=== PATIENT | female | born 1950 ===

== ENCOUNTER 2019-08-29 06:45 | Inpatient (IN) | payer MEDICARE, OTHER ==
[2019-08-29] VITALS (16 sets, daily range): BP systolic 105–151; BP diastolic 53–79
[~2019-08-29] VITALS: Ht 149.9 cm; Wt 74.5 kg
[~2019-08-29 06:45] MED LIST: ASPIR 8181 MG ORAL; LOSARTAN POTASS50 MG ORAL; METOPROLOL SUCC50 MG ORAL
[2019-08-29] MEDS ORDERED: cefOXitin Sod 2 GM in D5W 110 ML IVPB ONE (07:00)
[2019-08-29] MEDS ORDERED: Rocuronium Bromide 50mg/5ml Inj IV ONE (08:21)
[2019-08-29] MEDS ORDERED: cefOXitin 2gm Inj ONE (08:21)
[2019-08-29] MEDS ORDERED: Lidocaine 1% MPF 10mg/ml 5ml ONE (08:22)
[2019-08-29] MEDS ORDERED: Propofol 200mg/20ml IV ONE (08:22)
[2019-08-29] MEDS ORDERED: fentaNYL 100 mcg/2 mL IV ONE (08:23)
[2019-08-29] MEDS ORDERED: Midazolam 2mg/2ml Inj ONE (08:23)
[2019-08-29] MEDS ORDERED: Metoclopramide 10mg/2ml Inj ONE (08:24)
[2019-08-29] MEDS ORDERED: Ketorolac 30mg Inj ONE (08:25)
[2019-08-29] MEDS ORDERED: ProvayBlue 5mg/ml 10ml amp INJ ONE (08:30)
[2019-08-29] MEDS ORDERED: Sterile Water Irrig 1000ml IRRIG ONE (08:30)
[2019-08-29] MEDS ORDERED: NS Irrig 1000ml ONE (08:30)
[2019-08-29] MEDS ORDERED: LR 1000ml ONE (08:30)
[2019-08-29] MEDS ORDERED: Thrombin 5000 units spray kit TOPIC ONE (08:31)
[2019-08-29] MEDS ORDERED: LR 1000ml 1,000 ML IVLG SCH (08:31)
[2019-08-29] MEDS ORDERED: Bacitracin 50000 Units Vial ONE (08:31)
--- NOTE | 2019-08-29 08:34 | Anethesia Preoperative Eval ---
Anesthesia Pre-op PMH/ROS General Date of Evaluation: Aug 29, 2019 Anesthesiologist: Scottie ASA Score: ASA 3 Mallampati Score Class I : Soft palate, uvula, fauces, pillars visible Class II: Soft palate, uvula, fauces visible Class III: Soft palate, base of uvula visible Class IV: Only hard plate visible Mallampati Classification: Class III Surgeon: Brittany Diagnosis: bladder prolapse, aub Surgical Procedure: vaginal hysterectomy, vaginal sling Anesthesia History: none Family History: no anesthesia problems Allergies: Coded Allergies: CARISOPRODOL (Verified Allergy, Severe, 08/29/19) passed out Medications: see eMAR Patient NPO?: Yes NPO Date: Aug 28, 2019 NPO Time: 0 Past Medical History Cardiovascular: Reports: HTN, other - HLD; Denies: CAD, NM, valve dz, arrhythmia Pulmonary: Denies: asthma, COPD, CORONA, other Gastrointestinal/Genitourinary: Reports: GERD; Denies: CRI, ESRD, other Neurologic/Psychiatric: Denies: dementia, CVA, depression/anxiety, TIA, other Endocrine: Reports: DM; Denies: hypothyroidism, steroids, other HEENT: Reports: cataract (R); Denies: cataract (L), glaucoma, EAGLE (L), EAGLE (R), other Hematology/Immune: Denies: anemia, DVT, bleeding disorder, other Musculoskeletal/Integumentary: Reports: OA; Denies: RA, DJD, DDD, edema, other Other: obesity PSxH Narrative: lap appy, right thr, left elbow orif, left eye catarcty Anesthesia Pre-op Phys. Exam Physician Exam Last Vital Signs Date Time Temp Pulse Resp B/P (MAP) Pulse Ox O2 Delivery O2 Flow Rate FiO2 08/29/19 07:39 97.7 58 20 151/79 (103) 95 08/29/19 07:15 Room Air Constitutional: NAD Cardiovascular: RRR Respiratory: CTA Airway Exam Mallampati Score: Class III MO: limited Neck: obese, short TMD: <2FB ROM: full Teeth: missing, intact Anesthesia Pre-op A/P Labs see chart Studies Pre-op Studies: EKG - sb Risk Assessment & Plan Assessment: ASA III Plan: GA Status Change Before Surgery: No Pre-Antibiotics Drug: Meoxitin 2g Given Within 1 Hr of Incision: Yes Kathia Medina MD Aug 29, 2019 08:34
--- NOTE | 2019-08-29 08:35 | Pre-Procedure Note/Attestation ---
Pre-Procedure Note/Attestation Complete Prior to Procedure Planned Procedure: not applicable Procedure Narrative: vaginal hysterectomy ( sling to be performed by Dr. Heredia) Indications for Procedure Pre-Operative Diagnosis: complete uterovaginal prolapse Attestation I attest that I discussed the nature of the procedure; its benefits; risks and complications; and alternatives (and the risks and benefits of such alternatives ), prior to the procedure, with the patient (or the patient's legal branch sales and service representative). I attest that, if there was a reasonable possibility of needing a blood transfusion, the patient (or the patient's legal branch sales and service representative) was given the [place] Department [employer] Services standardized written summary, pursuant to the Naseem Nathan Blood Safety Act ([place] Health and Safety Code # 1645, as amended). I attest that I re-evaluated the patient just prior to the surgery and that there has been no change in the patient's H&P, except as documented below: Gale Doherty MD Aug 29, 2019 08:35
--- NOTE | 2019-08-29 08:38 | Pre-Procedure Note/Attestation ---
Pre-Procedure Note/Attestation Complete Prior to Procedure Planned Procedure: not applicable Procedure Narrative: cystocele rectocele repair vaginal sling cystoscopy Indications for Procedure Pre-Operative Diagnosis: prolapce Attestation I attest that I discussed the nature of the procedure; its benefits; risks and complications; and alternatives (and the risks and benefits of such alternatives ), prior to the procedure, with the patient (or the patient's legal personal service representative). I attest that, if there was a reasonable possibility of needing a blood transfusion, the patient (or the patient's legal personal service representative) was given the [facility] standardized written summary, pursuant to the Naseem Nathan Blood Safety Act ([place] Health and Safety Code # 1645, as amended). I attest that I re-evaluated the patient just prior to the surgery and that there has been no change in the patient's H&P, except as documented below: Cruz Heredia MD Aug 29, 2019 08:38
[2019-08-29] MEDS ORDERED: Ketorolac 30mg Inj IV PRN (08:45)
[2019-08-29] MEDS ORDERED: DiphenhydrAMINE 50mg/ml Inj IVP PRN ×2 (08:45→14:00)
[2019-08-29] MEDS ORDERED: Hydromorphone 0.5mg/0.5ml inj IVP PRN (08:45)
[2019-08-29] MEDS ORDERED: Midazolam 2mg/2ml Inj IVP PRN (08:45)
[2019-08-29] MEDS ORDERED: LORazepam Inj 2mg/ml 1ml IV PRN (08:45)
[2019-08-29] MEDS ORDERED: fentaNYL 100 mcg/2 mL IV PRN (08:45)
[2019-08-29] MEDS ORDERED: Metoclopramide 10mg/2ml Inj IVP PRN (08:45)
[2019-08-29] MEDS ORDERED: Hydrogen Peroxide 473ml Bottle TOPIC ONE (09:42)
--- NOTE | 2019-08-29 10:28 | Brief Operative Note ---
Immediate Post Operative Note Operative Note Pre-op Diagnosis: complete uterovaginal prolapse Procedure: [id number] (dictation) - vaginal hysterectomy/ mccalls culdoplasty/ left salpingectomy secondary to tube prolapse into vagina Post-op Diagnosis: same Post-op Diagnosis: same as pre-op plus Surgeon: Ramone Doherty Care Mgr: Angela Rosario Anesthesiologist: Charbel Anesthesia: general Specimen: yes Complications: none - uterus/ left tube Condition: stable Fluids: crystalloid Estimated Blood Loss: volume - 100cc Drains: none Implant(s) used?: No Gale Doherty MD Aug 29, 2019 10:28
[2019-08-29] MEDS ORDERED: Glycopyrrolate 0.2mg/ml 1ml Vial ONE (10:43)
[2019-08-29] MEDS ORDERED: Neostigmine 1mg/ml 10ml Inj ONE (10:43)
--- NOTE | 2019-08-29 11:09 | Immediate Post-Op Evaluation ---
Immediate Post-Op Evalulation Immediate Post-Op Evalulation Procedure: Vaginal hysterectomy and vaginal sling Date of Evaluation: Aug 29, 2019 Time of Evaluation: 11:11 IV Fluids: 1.4L Blood Products: 0 Estimated Blood Loss: 150 Urinary Output: 0 Blood Pressure Systolic: 105 Blood Pressure Diastolic: 54 Pulse Rate: 52 Respiratory Rate: 16 O2 Sat by Pulse Oximetry: 100 Temperature (Fahrenheit): 98.2 Pain Score (1-10): 0 Nausea: No Vomiting: No Complications 0 Patient Status: awake, reacts, patent, none Hydration Status: adequate Drug: Cefoxitin 2g Given Within 1 Hr of Incision: Yes Kathia Medina MD Aug 29, 2019 11:09
--- NOTE | 2019-08-29 13:00 | NUR ---
HAND-OFF: Report given to Merline. Addendum: 08/29/19 at 1608 by TRISTA GRENE RN Paul workman
--- NOTE | 2019-08-29 13:00 | NUR ---
NURSE NOTES: Received patient from PACU. Patient is alert and oriented x4. Not in respiratory/cardiac distress. V/S stable. Patient denies pain or discomfort. No nausea or vomiting. Orientation given about the unit such as call light use, meal time, visiting hours. Plan of care was discussed with patient. Patient is s/p vaginal hysterectomy, no bleeding or discharge noted. Patient also had some urological procedure and noted with linn 16 fr noted with greenish dye mixed with urine. No bloody urine 2 this time. SCD's on for DVT prophylaxis. No skin issue. IV intact, no s/s of infiltration. Instructed patient how to use call light and patient demonstrated. Room board was updated. Bed is in lowest position and locked. Dr. Doherty was paged for additional admission orders. C/O Kandace. Will continue plan of care.
[2019-08-29] MEDS ORDERED: HYDROmorphone 1mg/ml Carpuject IVP PRN (14:00)
[2019-08-29] MEDS ORDERED: HYDROcodone/Acetamin 10/325 tab ORAL PRN (14:00)
[2019-08-29] MEDS ORDERED: HYDROcodone/Acetamin 5/325 tab ORAL PRN (14:00)
[2019-08-29] MEDS ORDERED: Zolpidem 5mg tab ORAL PRN (14:00)
--- NOTE | 2019-08-29 15:40 | NUR ---
NURSE NOTES: Patient is in bed in stable condition. V/S stable. @ bedside.No vaginal bleeding or bloody urine noted. Started IVF and cefazolin IV antibiotics. Patient complains of dry mouth, offered fluid. V/S stable.
[2019-08-29] MEDS: Ketorolac 30mg Inj IV SCH ×2 (15:43→21:42)
[2019-08-29] MEDS: D5 1/2NS w/KCl 20mEq 1,000 ML IV SCH (15:43)
[2019-08-29] MEDS: ceFAZolin sod 1 GM in D5W 55 ML IV SCH ×2 (15:43→23:58)
--- NOTE | 2019-08-29 15:55 | NUR ---
NURSE NOTES: Patient tolerated well with clear liquid diet and wants to have regular diet for dinner. Advanced diet to regular.
--- NOTE | 2019-08-29 16:00 | NUR ---
NURSE NOTES: rec'd awake/alert. no c/o pain. iv infusing. linn catheter draining greenish output. in no distress.
--- NOTE | 2019-08-29 16:05 | NUR ---
CASE MANAGEMENT:REVIEW 69 YR OLD FEMALE HERE FOR ELECTIVE SURGERY SI: COMPLETE UTEROVAGINAL PROLAPSE 97.7 58 20 151/79 95% ON RA IS: TO SURGERY: VAGINAL HYSTERECTOMY : TO MED/SURG 3 EAST POST OP INTERQUAL CRITERIA MET
--- NOTE | 2019-08-29 16:08 | NUR ---
HAND-OFF: Report given to
--- NOTE | 2019-08-29 17:00 | Operative Note - Dictated ---
DATE OF OPERATION: 08/29/2019 PREOPERATIVE DIAGNOSIS: Complete uterovaginal prolapse. POSTOPERATIVE DIAGNOSIS: Complete uterovaginal prolapse. PROCEDURE: Vaginal hysterectomy. SURGEON: Gale Doherty M.D. EMERGENCY SPECIALIST: Hemalatha Rosario M.D. ANESTHESIA: General endotracheal. ANESTHESIOLOGIST: Dr. Barger. FLUIDS: Crystalloid. ESTIMATED BLOOD LOSS: 100 mL. PROCEDURE IN DETAIL: After ensuring informed consent, the patient was taken to the operating room where was placed in dorsal lithotomy position with legs up in Jay stirrups. She was sterilely prepped and draped. Perineum was shaved and the bladder was emptied by in-and-out catheterization. A weighted speculum was placed in the vagina. Circumferentially cervix was infiltrated with Marcaine with epinephrine. Circumferential incision was made with the Bovie and vaginal mucosa was pushed away from the underlying fascia with the Ray-Pancho. A window was made in the posterior cul-de-sac, peritoneum and Enrique clamp was used to grasp the uterosacral ligament on the left side, cut and suture ligated Then uterosacral on the right was likewise cut, transected and suture ligated. A window was made in the anterior peritoneum and Zeppelin clamp was used through that window to clamp the utero-ovarian and the broad ligament on the right side. The pedicle was transected and ligated x2, first with a free tie and then with [address]-1 needle. The pedicle on the right side was likewise grasped with a Zeppelin clamp. This pedicle included the uterine artery, cardinal broad ligament and uterosacral ligament was cinched down with a 0 Vicryl tie, next transected and suture ligated x2. At this point, the uterus was amputated and excellent hemostasis was assured in all the pedicles. The left tube was prolapsing into the vagina so it was likewise grasped with a Enrique clamp, amputated, and pedicle was ligated x2 with free tie. Peritoneum was closed with 2-0 Vicryl needle. Please note that the Shah's culdoplasty was performed and excess vagina was trimmed from the existing enterocele in this woman with complete vaginal prolapse. At this point, estimated blood loss was 100 mL. All lap and instrument counts were correct x2 and the case was turned over to Dr. Heredia for his part of the procedure. Gale Doherty M.D. DR: Steph JOB#: [id number] CC:
--- NOTE | 2019-08-29 17:14 | NUR ---
NURSE NOTES: Seen and evaluated by and new order received. Order read back and carried out.
[2019-08-29] MEDS ORDERED: Tubing IV Secondary IV ONE (18:06)
--- NOTE | 2019-08-29 18:52 | NUR ---
NURSE NOTES: RESTING IN BED. IN NO APPARENT DISTRESS.
--- NOTE | 2019-08-29 19:19 | NUR ---
HAND-OFF: Report given to Claudia HALL RN.
--- NOTE | 2019-08-29 19:46 | NUR ---
NURSE NOTES: Patient in bed, alert and oriented. No complaints of pain at this time. No s/s distress noted. De Oliveira in place, draining greenish urine by gravity. Bed in lowest position, call light within reach, will continue to monitor.
[2019-08-30 00:25] VITALS: BP 116/57
--- NOTE | 2019-08-30 01:49 | NUR ---
NURSE NOTES: Patient noted to have small amount of blood peripad and when nurse assessed patient's back, noted to have some dried blood on the sheets. Linen and peripad was changed. Patient remains alert and oriented, denies lightheadedness or pain. Will continue to monitor.
[2019-08-30] MEDS: D5 1/2NS w/KCl 20mEq 1,000 ML IV SCH ×2 (02:18→11:00)
[2019-08-30] MEDS: Ketorolac 30mg Inj IV SCH ×4 (03:21→20:45)
--- NOTE | 2019-08-30 03:45 | Operative Note - Dictated ---
DATE OF OPERATION: 08/29/2019 PREOPERATIVE DIAGNOSIS: Vaginal prolapse. POSTOPERATIVE DIAGNOSIS: Vaginal prolapse. OPERATION: Transvaginal cystocele repair, rectocele repair, enterocele repair, colposuspension, vaginal wall sling cystoscopy. OPERATED BY: Cruz Heredia M.D. ANESTHESIA: General. FINDINGS: Complete prolapsed vagina. INDICATIONS FOR SURGERY: The patient had full vaginal prolapse with the uterus, enterocele, rectocele, and cystocele. Treatment options were explained to her in great length including all potential complications. She signed the consent. PROCEDURE IN DETAIL: She was brought to the operating room, placed in lithotomy position, prepped and draped in a standard fashion. Dr. Doherty first performed a transvaginal hysterectomy. After the uterus was removed and peritoneal cavity was closed, I started my operation with dissection of the vagina anteriorly bladder from the vagina. After the bladder was completely and mid urethra was , was entered bluntly exposing the sacrospinal ligament. Using [employer], sutures were placed in the sacrospinous ligaments and brought outside. Transvaginal sling was placed in the mid urethra in a self-retaining fashion. [id number] sutures were used with 0 Vicryl to reduce the cystocele anteriorly and vagina was and then elevated great defect closure. After that, transvaginal rectocele repair was performed reapproximating perirectal fascia, closing the posterior vagina. Excellent cosmetic defect. Vagina then was closed with 2-0 Vicryl suture and packed. The patient tolerated the procedure well. ESTIMATED BLOOD LOSS: Approximately 50 mL. Cruz Heredia M.D. DR: Una JOB#: [id number] CC:
[2019-08-30 04:26] VITALS: BP 120/64
--- NOTE | 2019-08-30 05:50 | NUR ---
NURSE NOTES: Patient's peripad noted with small amount of blood, changed peripad again. Changed linn bag to leg bag as ordered. Also heplocked patient's IV.
[2019-08-30 06:20] LABS: BASOPHILS % (AUTO) 0.4 % (0.0-2.0); EOSINOPHILS % (AUTO) 1.3 % (0.0-3.0); HEMATOCRIT 34.6 % (37.0-47.0); HEMOGLOBIN 11.8 G/DL (12.0-16.0); LYMPHOCYTES % (AUTO) 13.7 % (20.0-45.0); MEAN CORPUSCULAR VOLUME 85 FL (80-99); MONOCYTES % (AUTO) 6.8 % (1.0-10.0); NEUTROPHILS % (AUTO) 77.8 % (45.0-75.0); PLATELET COUNT 237 K/UL (150-450); RED BLOOD COUNT 4.06 M/UL (4.20-5.40); RED CELL DISTRIBUTION WIDTH 11.4 % (11.6-14.8); WHITE BLOOD COUNT 17.2 K/UL (4.8-10.8)
[2019-08-30 06:55] LABS: ANION GAP 9 mmol/L (5-15); BLOOD UREA NITROGEN 11 mg/dL (7-18); CALCIUM 8.3 MG/DL (8.5-10.1); CARBON DIOXIDE 26 MMOL/L (21-32); CHLORIDE 106 MMOL/L (98-107); POTASSIUM 4.1 MMOL/L (3.5-5.1); SODIUM 141 MMOL/L (136-145)
--- NOTE | 2019-08-30 07:29 | NUR ---
HAND-OFF: Report given to MARINO FLOWERS RN. PATIENT IN STABLE CONDITION.
[2019-08-30 08:00] VITALS: BP 120/59
[2019-08-30] MEDS: Metoprolol Succinate XL 50mg tab ORAL SCH (09:00)
[2019-08-30] MEDS: Losartan 50mg tab ORAL SCH (09:00)
[2019-08-30] MEDS: ceFAZolin sod 1 GM in D5W 55 ML IV SCH ×2 (09:08→16:37)
--- NOTE | 2019-08-30 09:53 | 48 Hour Post Anesthesia Eval ---
Post Anesthesia Evaluation Procedure: Vaginal hysterectomy and vaginal sling Date of Evaluation: Aug 30, 2019 Time of Evaluation: 09:52 Blood Pressure Systolic: 124 0: 72 Pulse Rate: 72 Respiratory Rate: 20 Temperature (Fahrenheit): 97.4 O2 Sat by Pulse Oximetry: 98 Airway: patent Nausea: No Vomiting: No Pain Intensity: 2 Hydration Status: adequate Cardiopulmonary Status: stable Mental Status/LOC: patient returned to baseline Follow-up Care/Observations: n/a Post-Anesthesia Complications: none Follow-up care needed: N/A Anthony Glynn MD Aug 30, 2019 09:53
--- NOTE | 2019-08-30 11:34 | NUR ---
NURSE NOTES: HANDOFF RECEIVED FROM TIFFANI HOPE. PATIENT RECEIVED AWAKE AND ALERT, RESTING IN BED. PATIENT ABLE TO MAKE NEEDS KNOWN. BED IN THE LOW AND LOCKED POSITION WITH CALL LIGHT WITHIN REACH. PATIENT IV SITE IS CLEAN, DRY AND INTACT. NO ORDERS FOR IV FLUIDS. NO VISIBLE SIGNS OF DISTRESS NOTED. WILL CONTINUE TO MONITOR.
[2019-08-30 11:39] VITALS: BP 125/69
--- NOTE | 2019-08-30 13:01 | NUR ---
NURSE NOTES: DR SALGADO CALLED FOR AN UPDATE ON PATIENT. INFORMED DR THAT PATIENT IS NO LONGER RECEIVING IV FLUIDS PER ORDERS, PATIENT NOW TOLERATING PO FLUIDS. DR ALSO RECOMMENDED THAT PATIENT SHOULD AMBULATE OR AT LEAST SIT UP IN BED. PATIENT NOT COMPLAINING OF PAIN UNLESS MOVING. ONLY RECEIVING THE SCHEDULED KETOROLAC NSAID FOR PAIN MANAGEMENT.
--- NOTE | 2019-08-30 14:35 | General Surgery Progress Note ---
General Surgery-Progress Note Subjective Procedure Performed [id number] (dictation) - vaginal hysterectomy/ mccalls culdoplasty/ left salpingectomy secondary to tube prolapse into vagina Symptoms: improved, pain absent, tolerating diet, passing flatus Objective Last 24 Hour Vital Signs Date Time Temp Pulse Resp B/P (MAP) Pulse Ox O2 Delivery O2 Flow Rate FiO2 08/30/19 11:39 99.7 79 18 125/69 (87) 95 08/30/19 09:53 72 20 98 08/30/19 09:00 Room Air 08/30/19 09:00 79 120/59 08/30/19 09:00 120/59 08/30/19 08:00 99.7 79 19 120/59 (79) 95 08/30/19 04:26 99.1 77 19 120/64 (82) 94 08/30/19 03:51 99.2 08/30/19 00:25 99.2 69 19 116/57 (76) 93 08/29/19 22:48 Room Air 08/29/19 20:49 98.2 63 20 122/66 (84) 97 08/29/19 15:36 97.4 62 20 122/69 (86) 96 08/29/19 14:36 97.6 61 19 118/71 (87) 97 I&O Intake and Output 08/29/19 08/30/19 19:00 07:00 Intake Total 2355 ml 1815 ml Output Total 700 ml 2100 ml Balance 1655 ml -285 ml Intake Oral 400 ml 960 ml IV Total 1955 ml 855 ml Output Urine Total 550 ml 2100 ml Estimated Blood Loss 150 ml Wound: clean, dry Drains: none Cardiovascular: RSR Respiratory: clear Abdomen: soft, non-tender, non-distended Extremities: no edema Laboratory Tests Test 08/30/19 05:25 White Blood Count 17.2 K/UL (4.8-10.8) H Red Blood Count 4.06 M/UL (4.20-5.40) L Hemoglobin 11.8 G/DL (12.0-16.0) L Hematocrit 34.6 % (37.0-47.0) L Mean Corpuscular Volume 85 FL (80-99) Mean Corpuscular Hemoglobin 29.1 PG (27.0-31.0) Mean Corpuscular Hemoglobin Concent 34.2 G/DL (32.0-36.0) Red Cell Distribution Width 11.4 % (11.6-14.8) L Platelet Count 237 K/UL (150-450) Mean Platelet Volume 5.8 FL (6.5-10.1) L Neutrophils (%) (Auto) 77.8 % (45.0-75.0) H Lymphocytes (%) (Auto) 13.7 % (20.0-45.0) L Monocytes (%) (Auto) 6.8 % (1.0-10.0) Eosinophils (%) (Auto) 1.3 % (0.0-3.0) Basophils (%) (Auto) 0.4 % (0.0-2.0) Sodium Level 141 MMOL/L (136-145) Potassium Level 4.1 MMOL/L (3.5-5.1) Chloride Level 106 MMOL/L (98-107) Carbon Dioxide Level 26 MMOL/L (21-32) Anion Gap 9 mmol/L (5-15) Blood Urea Nitrogen 11 mg/dL (7-18) Creatinine 1.0 MG/DL (0.55-1.30) Estimat Glomerular Filtration Rate 55.3 mL/min (>60) Glucose Level 141 MG/DL (74-106) H Calcium Level 8.3 MG/DL (8.5-10.1) L Assessment Post-op Diagnosis same Plan Additional Comments pt not ambulating adequately yet keep hospitalized until tomorrow then void trial and dc home +/ - linn. Gale Doherty MD Aug 30, 2019 14:35
[2019-08-30 16:00] VITALS: BP 141/67
--- NOTE | 2019-08-30 16:00 | NUR ---
NURSE NOTES: PATIENT STATED THAT DOCTOR VISITED AND REMOVED THE VAGINAL PACKING. PATIENT CONCERNED THAT SHE HAD SOME VAGINAL BLEEDING. INFORMED PATIENT THAT SOME BLEEDING IS NORMAL AND THAT WE WOULD CONTINUE TO MONITOR THE BLEEDING. CHANGED THE ABDOMINAL BINDER PAD AND NOTED SOME BLEEDING ON THE PAD ROUGHLY 3X2 INCHES IN LENGTH. WILL CONTINUE TO ASSESS AND MONITOR THE PATIENT.
--- NOTE | 2019-08-30 16:23 | NUR ---
NURSE NOTES: PATIENT HAD A FEVER OF 101.1 ADMINISTERED TYLENOL PER MD ORDERS. CONTACTED DR SALGADO [facility]IN[facility] AND LEFT A MESSAGE TO UPDATE DR REGARDING PATIENTS CONDITION. [employer]EARCH [employer] GAVE DIRECT NUMBER FOR DR SALGADO, CALLED BUT DID NOT GET AN ANSWER AND UNABLE TO LEAVE A MESSAGE THE MAILBOX IS FULL.
--- NOTE | 2019-08-30 16:55 | NUR ---
NURSE NOTES: CALLED AND SPOKE TO DR SALGADO, NOTIFIED HER OF PATIENT'S TEMPERATURE. DR ASKED IF PATIENT WAS STILL RECEIVING CEFAZOLIN INFORMED THAT PATIENT WAS IN FACT, STILL RECEIVING ANTIBIOTICS. ALSO CLARIFIED THE ORDER FOR MCALLISTER REMOVAL THE PREVIOUS NOTE STATED MCALLISTER TO BE REMOVED BY THE DR. STATED THAT THE MCALLISTER IS TO BE REMOVED AT 0600 TOMORROW MORNING BY NURSING STAFF, THEN TO CARRY OUT A VOIDING TRIAL. WILL ENDORSE TO AMMUNITION STORAGE SUPERINTENDENT NURSE.
--- NOTE | 2019-08-30 19:34 | NUR ---
HAND-OFF: Report given to TIFFANI MONTERO.
--- NOTE | 2019-08-30 19:35 | NUR ---
NURSE NOTES: Received report & pt from TIFFANI Petty. Pt lying in bed, a&ox4, in room air. No s/s of acute distress & no c/o of pain. De Oliveira with leg bag intact & draining. Vaginal packing removed by AM shift nurse Jovanny. Noted with maternity pad. F/C to be d/c'd tomorrow 08/31 @ 0600 as ordered. Pt made aware. IV site intact & S/L'd. Bed in lowest position, call light within reach. Will continue to monitor.
[2019-08-30 20:00] VITALS: BP 123/68
[2019-08-31] VITALS: BP 115/61
[2019-08-31] MEDS: ceFAZolin sod 1 GM in D5W 55 ML IV SCH ×2 (00:31→08:20)
[2019-08-31] MEDS: Ketorolac 30mg Inj IV SCH ×2 (03:19→08:24)
[2019-08-31 04:00] VITALS: BP 144/78
--- NOTE | 2019-08-31 06:00 | NUR ---
NURSE NOTES: De Oliveira catheter removed. Pt tolerated very well. Toilet hat provided. Pt was instructed to call RN of pt's first void. Encouraged to drink more fluids. Pt verbalized understanding.
[2019-08-31 06:44] LABS: BASOPHILS % (AUTO) 0.5 % (0.0-2.0); EOSINOPHILS % (AUTO) 1.8 % (0.0-3.0); HEMATOCRIT 35.9 % (37.0-47.0); HEMOGLOBIN 12.2 G/DL (12.0-16.0); LYMPHOCYTES % (AUTO) 13.3 % (20.0-45.0); MEAN CORPUSCULAR VOLUME 86 FL (80-99); MONOCYTES % (AUTO) 7.3 % (1.0-10.0); NEUTROPHILS % (AUTO) 77.2 % (45.0-75.0); PLATELET COUNT 229 K/UL (150-450); RED BLOOD COUNT 4.19 M/UL (4.20-5.40); RED CELL DISTRIBUTION WIDTH 11.7 % (11.6-14.8); WHITE BLOOD COUNT 17.3 K/UL (4.8-10.8)
--- NOTE | 2019-08-31 07:30 | NUR ---
NURSE NOTES: Patient is in bed awake and able to verbalize needs. Stable. Denies pain or SOB. Patient encouraged to use call light for assistance, verbalized understanding. Patient instructed to call RN when voiding. Patient is in bed in locked and lowest position with call light within reach. Will continue to monitor.
--- NOTE | 2019-08-31 07:30 | NUR ---
HAND-OFF: Report given to TIFFANI Bradford & TIFFANI Petty. Pt in stable condition. Rounds done.
[2019-08-31 08:00] VITALS: BP 125/95
[2019-08-31] MEDS: Losartan 50mg tab ORAL SCH (08:24)
[2019-08-31] MEDS: Metoprolol Succinate XL 50mg tab ORAL SCH (08:26)
[2019-08-31] MEDS ORDERED: Sodium Chloride 3% 4ml Nebul Soln INH SCH (10:15)
[2019-08-31 12:00] VITALS: BP 141/78
--- NOTE | 2019-08-31 12:30 | NUR ---
NURSE NOTES: Patient discharged home as ordered. Stable. Denies pain or SOB. Patient was given thorough discharge instructions by RN, patient verbalized understanding. Patient stated that she will call Dr. Heredia and Dr. Doherty today. Patient has all belongings. Patient's is bedside and also instructed of after care. Patient's skin is clean ,dry, and intact. Patient able to void without c/o burning or discomfort. No IV access. Patient assisted downstairs by RN.
[2019-08-31] MEDS ORDERED: NS Irrig 1000ml ONE (12:44)
[2019-08-31] MEDS ORDERED: NS 275ml ONE (12:44)
--- NOTE | 2019-09-02 14:45 | Discharge Summary ---
Discharge Summary Discharge Summary _ DATE OF ADMISSION: 08/29/2019 DATE OF DISCHARGE: 08/31/2019 DISCHARGED BY: Dr. Gale Doherty CO-SURGEON: Dr. Cruz Heredia BRIEF HOSPITAL COURSE: Patient is a 69-year-old female, diagnosed with complete uterovaginal prolapse, was admitted on 08/29/2019 and underwent vaginal hysterectomy; Transvaginal cystocele repair, rectocele repair, enterocele repair, colposuspension and vaginal wall sling cystoscopy by Dr. Heredia. She tolerated procedure well and postoperatively was admitted for postop care. She was given IV hydration. She was encouraged use of incentive spirometry. She was placed on SCDs and MYNOR hose for DVT prophylaxis. She was given pain management. Diet was advanced. De Oliveira catheter was removed the following day. She was able to void freely. She was eventually cleared for discharge home. FINAL DIAGNOSES: Complete uterovaginal prolapse status post vaginal hysterectomy; transvaginal cystocele repair; rectocele repair, enterocele repair, colposuspension and vaginal wall sling cystoscopy DISPOSITION: Patient was discharged home. DISCHARGE MEDICATIONS: Refer to Discharge Medication List. DISCHARGE INSTRUCTIONS: Follow-up in a week. I have been assigned to complete a discharge summary on this account, I was not involved with the patient's management.--SHARRI Kent Jacqueline Robles NP Sep 02, 2019 14:45
== END 2019-08-31 12:45 | disposition home or self-care (01) | DRG 743 ==
LOC: SDSOVERFLO 06:45 → 3E 12:52
PROC: 0UQF7ZZ Repair Cul-de-sac, Via Natural or Artificial Opening (ICD-10-PCS; principal; 2019-08-29 08:30)
PROC: 0UT67ZZ Resection of Left Fallopian Tube, Via Natural or Artificial Opening (ICD-10-PCS; principal; 2019-08-29 08:30)
PROC: 0TSD4ZZ Reposition Urethra, Percutaneous Endoscopic Approach (ICD-10-PCS; principal; 2019-08-29 08:30)
PROC: 0UT97ZZ Resection of Uterus, Via Natural or Artificial Opening (ICD-10-PCS; principal; 2019-08-29 08:30)
PROC: 0USG7ZZ Reposition Vagina, Via Natural or Artificial Opening (ICD-10-PCS; principal; 2019-08-29 08:30)
PROC: 0JQC3ZZ Repair Pelvic Region Subcutaneous Tissue and Fascia, Percutaneous Approach (ICD-10-PCS; principal; 2019-08-29 08:30)
DX: N81.3 Complete uterovaginal prolapse (principal); I10 Essential (primary) hypertension; K21.9 Gastro-esophageal reflux disease without esophagitis; E11.9 Type 2 diabetes mellitus without complications; M19.90 Unspecified osteoarthritis, unspecified site
CPT/HCPCS: 36415; 80048; 85025; 86850; 86900; 86901; 87081; J2250; J2405; J2710; J2765